=== PATIENT | female | born 1945 | race American Indian/Alaskan Native ===

== ENCOUNTER 2021-10-22 07:58 | Day surgery (SDC) | payer MEDICARE ==
[~2021-10-22 07:58] MED LIST: SODIUM CHLORIDE 0.9% 1000 ML 1,000 ML IV SCH
--- NOTE | 2021-10-22 08:35 | Anesthesia Day of Surgery ---
Anesthesia Day of Surgery - Day of Surgery Patient Examined: Yes Patient H&P Reviewed: Yes Patient is NPO: Yes
--- NOTE | 2021-10-22 08:37 | Anesthesia Consultation ---
Anesthesia Consult and Med Hx Date of service: 10/22/21 - Airway Anesthetic Teeth Evaluation: Dentures (Upper), Edentulous (Upper) ROM Head & Neck: Adequate Mental/Hyoid Distance: Adequate Mallampati Class: Class I Intubation Access Assessment: Good - Pre-Operative Health Status ASA Pre-Surgery Classification: ASA2 Proposed Anesthetic Plan: MAC - Pulmonary Hx Smoking: No Hx Respiratory Symptoms: No (+2FS) Hx Sleep Apnea: No - Cardiovascular System Hx Hypertension: Yes - Gastrointestinal Hx Gastroesophageal Reflux Disease: No (S/P gastric bypass) - Hematic Hx Anemia: Yes Hx Sickle Cell Disease: No - Other Systems Hx Obesity: No - Additional Comments Anesthesia Medical History Comments: Pt reports having heart/liver/kidney tests because of swelling which were all negative. She was admitted for six days
[2021-10-22] MEDS ORDERED: propofoL 200 MG/20 ML VIAL IV ONE ×2 (09:39→10:30)
[2021-10-22] MEDS ORDERED: LIDOCAINE MPF (2%) 20 MG/1 ML VIAL 5 ML ONE (09:39)
--- NOTE | 2021-10-22 10:54 | Operative Report ---
Operative Report Operative Report: DATE: 10/22/2021 Esophagogastroduodenoscopy with multiple mucosal biopsies. ATTENDING PHYSICIAN: Ramos Valentin M.D. [employer] OPERATIVE: Ramos Valentin M.D. INDICATION: Patient is a 75 year old female who presents with history of recurrent epigastric pain/diffuse abdominal pain, history of abnormal weight loss dyspepsia with early satiety. Patient has a past history of gastric bypass more than 20 years ago. An upper endoscopy is done to assess patient so that treatment may be directed based on the findings. CONSENT: Informed consent was obtained after the patient was advised regarding the nature of this procedure, its indications, potential benefits as well as possible complications including but not limited to bleeding, perforation, adverse reaction to medications, infection as well as cardiopulmonary complications. An informed written and verbal consent was then obtained after due opportunity was provided for questions and answers. MONITORING: Patient monitored continuously with pulse oximetry, electrocardiographic recordings as well as automatic blood pressure recordings. Patient remained stable throughout the procedure with no untoward events. PREOPERATIVE ASSESSMENT: Patient was assessed immediately prior to this procedure for capacity to tolerate moderate sedation/monitored anesthesia care. [place] anesthesiology association classification is 3. Mallampatti class is 2. Hyomental distance is 3. INSTRUMENT: Olympus video endoscope [id number]. MEDICATIONS: Propofol given intravenously in divided doses. For details, please refer to anesthesia records. DESCRIPTION OF PROCEDURE: Patient was placed in the left lateral decubitus position, after achieving sedation, the endoscope was introduced into the esophagus and advanced under direct visualization into the gastric stump and then through the gastrojejunostomy anastomosis into the jejunum with examination of both the afferent and efferent limbs of the anastomosis. Color texture mucosa and anatomy of the upper gastrointestinal tract was carefully examined with the endoscope which was then gently withdrawn with careful inspection of all mucosa surfaces. The patient tolerated the procedure well with no complications. The preparation was fair. The following findings were noted. FINDINGS: The esophagus appeared normal. The Z line was noted on 40 cm. It was unremarkable. Patient had a gastric stump. There were apparent anastomotic inflammatory appearing polyps. These were biopsied for histopathology. Both limbs of the gastrojejunostomy anastomosis appeared completely normal. No other gross abnormalities were seen on this examination. There were no isiah- anastomotic ulcers seen. The endoscope was removed after completing the examination. IMPRESSION: Normal esophagus. 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 Normal gastrojejunostomy anastomosis. Normal jejunum to the examined segments. PLAN: Follow pathology report Evaluate patient further with a colonoscopy Additional recommendations will be made depending on the colonoscopy findings and in close follow-up.
--- NOTE | 2021-10-22 11:00 | Operative Report ---
Operative Report Operative Report: Colonoscopy with multiple cold snare polypectomies, hemoclip application. DATE:10/22/2021 ATTENDING PHYSICIAN: Ramos Valentin M.D. [employer]OLOGICAL MAN: Ramos Valentin M.D. INDICATIONS: Patient is a 75 y.o. female who presents for colorectal cancer screening and also evaluation of diffuse abdominal pain and change in bowel habits, with abnormal weight loss. A colonoscopy is done to evaluate patient so that treatment may be directed based on the findings. CONSENT: Informed consent was obtained after the patient was advised regarding the nature of this procedure, its indications, potential benefits as well as possible complications including but not limited to bleeding, perforation, adverse reaction to medications, infection as well as cardiopulmonary complications. An informed written and verbal consent was then obtained after due opportunity was provided for questions and answers. MONITORING: Patient monitored continuously with pulse oximetry, electrocardiographic recordings as well as automatic blood pressure recordings. Patient remained stable throughout the procedure with no untoward events. PREOPERATIVE ASSESSMENT: Patient was assessed immediately prior to this procedure for capacity to tolerate moderate sedation/monitored anesthesia care. [place] anesthesiology association classification is 2. Mallampati class is 2. Hyomental distance is 3. INSTRUMENT: Olympus video colonoscope [id number]. MEDICATIONS: Propofol given intravenously in divided doses. For details, please refer to anesthesia records. DESCRIPTION OF PROCEDURE: Patient was placed in the left lateral decubitus position, after achieving sedation, a digital rectal examination was performed following which the colonoscope was introduced into the anal verge and advanced under direct visualization to the cecum which was identified by the ileocecal valve, the appendiceal orifice, the cecal strap as well as by direct transillumination in the right lower quadrant. Color texture mucosa and anatomy of the colon were carefully examined with the colonoscope. The colonoscope was then gently withdrawn with careful inspection of all mucosa surfaces. The patient tolerated the procedure well with no complications. After completion of the examination, patient was transferred to the recovery room. The prep written regimen was GoLYTELY and the preparation was adequate. The following findings were noted. FINDINGS: Patient had diverticulosis involving the sigmoid colon and the descending colon of mild severity. In the transverse colon, patient had a diminutive 6 mm sessile polyp which was run by cold snap polypectomy. In the sigmoid colon, patient had two diminutive polyps again that were written by cold snap polypectomy. There was a defect at the polypectomy site and the sigmoid colon. Two humor clips were applied over the polypectomy defect. There were no other gross abnormalities seen. On the retroflexed view at the anal verge patient had internal hemorrhoids. IMPRESSION: Diminutive transverse colon polyps status post cold snare polypectomy. Diminutive sigmoid colon polyps status post cold snare polypectomy, hemoglobin application. Colonic diverticulosis. Internal Hemorrhoids . PLAN: Follow-up pathology report. High fiber diet. Additional recommendations will be made in close outpatient follow-up.
[2021-10-22 13:02] VITALS: BP 148/88
--- NOTE | 2021-10-22 16:48 | Post Anesthesia Evaluation ---
- Post Anesthesia Evaluation Patient Participated: Yes Airway Patent: Yes Stable Respiratory Function: Yes Nausea/Vomiting: No Temp > 96.8F: Yes Pain Manageable: Yes Adequeate Hydration: Yes Anesthesia Complications: No Block Receding Appropriately: Not Applicable Patient on Ventilator: No
== END 2021-10-22 11:15 | disposition home or self-care (01) ==
LOC: GIO 07:58
PROVIDERS: ATTEND Internal Medicine Gastroenterology
DX: R19.4 Change in bowel habit (principal); R10.9 Unspecified abdominal pain; R63.4 Abnormal weight loss; K57.30 Diverticulosis of large intestine without perforation or abscess without bleeding; K64.8 Other hemorrhoids; K29.50 Unspecified chronic gastritis without bleeding; K63.5 Polyp of colon; I10 Essential (primary) hypertension; D64.9 Anemia, unspecified; B96.81 Helicobacter pylori [H. pylori] as the cause of diseases classified elsewhere; Z79.899 Other long term (current) drug therapy
CPT/HCPCS: 43239; 45385; 88305; 88342; J2704; J7030